=== PATIENT | female | born 1950 | race Caucasian/White ===

== ENCOUNTER 2025-09-19 09:42 | Outpatient (CLI) | payer MEDICARE, SELFPAY ==
[2025-09-19 10:58] LABS: Hematocrit 41.4 % (36-47); Hemoglobin 13.70 g/dL (11.27-16.99); Mean Corpuscular HGB Conc 33.1 g/dL (30-55); Mean Corpuscular Hemoglobin 33.3 pg (27-33); Mean Corpuscular Volume 100.7 fl (85-98); Nucleated Red Blood Cells % 0 %; Platelet Count 245 10^3/cmm (157-399); Red Blood Count 4.11 10^6/uL (3.85-5.65); White Blood Count 5.81 10^3/uL (3.29-11.43)
[2025-09-19 11:41] LABS: Alanine Aminotransferase 19 U/L (0-33); Albumin Level 4.3 g/dL (3.5-5.2); Alkaline Phosphatase 91 U/L (35-105); Aspartate Amino Transferase 22 U/L (0-32); Blood Urea Nitrogen 14 mg/dL (8-23); Calcium 9.3 mg/dL (8.5-10.5); Carbon Dioxide 27 mmol/L (22-29); Chloride 100 mmol/L (98-107); Cholesterol 200 mg/dL (0-200); Globulin 2.7 g/dL (1.3-4.6); Glucose 97 mg/dL (65-115); HDL Cholesterol 64 mg/dL (60-100); Osmolality Calculated 286 mOsm/kg (285-295); Sodium 138 mmol/L (136-145); Thyroid Stimulating Hormone 3.23 uIU/mL (0.27-4.20); Total Protein 7.0 g/dL (6.6-8.7); Triglycerides 125 mg/dL (0-150)
[2025-09-19 12:53] LABS: Anion Gap 15.1 (5-19); Potassium 4.1 mmol/L (3.5-5.1)
== END 2025-09-19 09:43 | disposition home or self-care (01) ==
LOC: LAB 09:51
PROVIDERS: PCP Nurse Practitioner Family; Visit Provider Nurse Practitioner Family
DX: Z79.899 Other long term (current) drug therapy (principal); N18.9 Chronic kidney disease, unspecified; F41.9 Anxiety disorder, unspecified; E78.5 Hyperlipidemia, unspecified; M06.9 Rheumatoid arthritis, unspecified
CPT/HCPCS: 36415; 80053; 80061; 82306; 84443; 85025